=== PATIENT | male | born 1975 | race Caucasian/White ===

== ENCOUNTER 2025-02-01 06:59 | Day surgery (SDC) | payer MEDICAID ==
[2025-02-01] MEDS: Lactated Ringers 1,000 ML IV SCH (07:24)
[2025-02-01] MEDS ORDERED: fentaNYL 100 MCG/2 ML SDV ONE (08:35)
[2025-02-01] MEDS ORDERED: Propofol 200 MG/20 ML SDV ONE ×2 (08:35→09:24)
== END 2025-02-01 10:52 | disposition home or self-care (01) ==
LOC: VM.SDS 06:59
PROVIDERS: ATTEND Family Medicine
DX: Z12.11 Encounter for screening for malignant neoplasm of colon (principal); D12.2 Benign neoplasm of ascending colon; D12.3 Benign neoplasm of transverse colon; K63.5 Polyp of colon; K57.30 Diverticulosis of large intestine without perforation or abscess without bleeding; E78.00 Pure hypercholesterolemia, unspecified; E66.9 Obesity, unspecified; Z91.09 Other allergy status, other than to drugs and biological substances; Z68.31 Body mass index [BMI] 31.0-31.9, adult; Z79.899 Other long term (current) drug therapy
CPT/HCPCS: 00811; J2704; J3010; J7120